=== PATIENT | female | born 1940 | race Native Hawaiian/Other Pacific Islander ===

== ENCOUNTER 2016-09-05 10:40 | Outpatient (CLI) | payer OTHER ==
[~2016-09-05] VITALS: Ht 157.5 cm; Wt 40.8 kg
[2016-09-05 10:55] VITALS: BP 117/50; TEMP 98.3
== END 2016-09-05 20:28 | disposition home or self-care (01) ==
LOC: INF 10:40
DX: M81.0 Age-related osteoporosis without current pathological fracture (principal)
CPT/HCPCS: 36415; 82310; 96372; J0897

== ENCOUNTER 2017-03-06 12:51 | Outpatient (CLI) | payer OTHER ==
[~2017-03-06] VITALS: Ht 157.5 cm; Wt 40.8 kg
[2017-03-06 14:00] VITALS: BP 126/50; TEMP 98
== END 2017-03-06 14:00 | disposition home or self-care (01) ==
LOC: INF 12:51
DX: M81.0 Age-related osteoporosis without current pathological fracture (principal)
CPT/HCPCS: 36415; 82310; 96372; J0897

== ENCOUNTER 2017-06-28 13:00 | Outpatient (CLI) | payer OTHER | END 2017-06-28 14:00 | disposition home or self-care (01) | LOC: MAMMO 13:00 | DX: Z12.31 Encounter for screening mammogram for malignant neoplasm of breast (principal) ==

== ENCOUNTER 2017-09-21 12:34 | Outpatient (CLI) | payer OTHER ==
[~2017-09-21] VITALS: Ht 157.5 cm; Wt 40.8 kg
== END 2017-09-21 13:24 | disposition home or self-care (01) ==
LOC: INF 12:34
DX: M81.0 Age-related osteoporosis without current pathological fracture (principal)
CPT/HCPCS: 82310; 96372; J0897

== ENCOUNTER 2018-03-25 09:30 | Outpatient (CLI) | payer OTHER ==
[~2018-03-25] VITALS: Ht 157.5 cm; Wt 40.8 kg
[2018-03-25 09:40] VITALS: BP 149/62; TEMP 97.8
== END 2018-03-25 20:39 | disposition home or self-care (01) ==
LOC: INF 09:30
DX: M81.0 Age-related osteoporosis without current pathological fracture (principal)
CPT/HCPCS: 36415; 82310; 96372; J0897

== ENCOUNTER 2018-08-27 12:09 | Outpatient (CLI) | payer OTHER | END 2018-08-27 20:45 | disposition home or self-care (01) | LOC: MAMMO 12:09 | DX: Z12.31 Encounter for screening mammogram for malignant neoplasm of breast (principal) ==

== ENCOUNTER 2018-09-30 12:43 | Outpatient (CLI) | payer OTHER ==
[~2018-09-30] VITALS: Ht 157.5 cm; Wt 40.8 kg
[2018-09-30 13:00] VITALS: BP 124/41; TEMP 97.9
== END 2018-09-30 13:55 | disposition home or self-care (01) ==
LOC: INF 12:43
DX: M81.0 Age-related osteoporosis without current pathological fracture (principal)
CPT/HCPCS: 36415; 82310; 96372; J0897

== ENCOUNTER 2018-10-06 21:23 | Emergency (ER) | payer OTHER ==
[~2018-10-06] VITALS: Ht 157.5 cm; Wt 40.8 kg
[2018-10-06 23:10] VITALS: BP 131/49; TEMP 97.9
== END 2018-10-06 23:13 | disposition home or self-care (01) ==
LOC: ED 21:23
PROC: 0HQ1XZZ Repair Face Skin, External Approach (ICD-10-PCS; principal; 2018-10-06)
DX: S01.81XA Laceration without foreign body of other part of head, initial encounter (principal); S61.412A Laceration without foreign body of left hand, initial encounter; W01.198A Fall on same level from slipping, tripping and stumbling with subsequent striking against other object, initial encounter; Y92.89 Other specified places as the place of occurrence of the external cause
CPT/HCPCS: 90471; 90715; 99282

== ENCOUNTER 2019-04-07 12:25 | Outpatient (CLI) | payer OTHER ==
[~2019-04-07] VITALS: Ht 157.5 cm; Wt 40.8 kg
[2019-04-07 12:44] VITALS: BP 129/45; TEMP 97.8
[2019-04-07 13:18] VITALS: BP 124/39; TEMP 97.8
== END 2019-04-07 13:18 | disposition home or self-care (01) ==
LOC: INF 12:25
DX: M81.0 Age-related osteoporosis without current pathological fracture (principal)
CPT/HCPCS: 36415; 82310; 96372; J0897

== ENCOUNTER 2019-09-11 12:59 | Outpatient (CLI) | payer OTHER | END 2019-09-11 19:48 | disposition home or self-care (01) | LOC: MAMMO 12:59 | DX: Z12.31 Encounter for screening mammogram for malignant neoplasm of breast (principal) ==

== ENCOUNTER 2019-12-31 12:40 | Outpatient (CLI) | payer OTHER ==
[~2019-12-31] VITALS: Ht 157.5 cm; Wt 40.8 kg
[2019-12-31 12:50] VITALS: BP 130/42; TEMP 98.7
== END 2019-12-31 21:53 | disposition home or self-care (01) ==
LOC: INF 12:40
DX: M81.0 Age-related osteoporosis without current pathological fracture (principal)
CPT/HCPCS: 36415; 82310; 96372; J0897

== ENCOUNTER 2020-07-15 10:14 | Outpatient (CLI) | payer OTHER ==
[~2020-07-15] VITALS: Ht 157.5 cm; Wt 43.1 kg
[2020-07-15 10:30] VITALS: BP 129/50; TEMP 98.4
== END 2020-07-15 11:27 | disposition home or self-care (01) ==
LOC: INF 10:14
PROVIDERS: ATTEND Internal Medicine Endocrinology, Diabetes & Metabolism
DX: M81.0 Age-related osteoporosis without current pathological fracture (principal)
CPT/HCPCS: 36415; 82310; 96372; J0897

== ENCOUNTER 2021-01-24 12:25 | Outpatient (CLI) | payer OTHER ==
[~2021-01-24] VITALS: Ht 157.5 cm; Wt 42.2 kg
== END 2021-01-24 14:30 | disposition home or self-care (01) ==
LOC: INF 12:25
PROVIDERS: ATTEND Internal Medicine Endocrinology, Diabetes & Metabolism
DX: M81.0 Age-related osteoporosis without current pathological fracture (principal)
CPT/HCPCS: 36415; 82310; 96372; J0897

== ENCOUNTER 2021-02-25 10:59 | Outpatient (CLI) | payer OTHER | END 2021-02-25 22:37 | disposition home or self-care (01) | LOC: MAMMO 10:59 | PROVIDERS: ATTEND Internal Medicine | DX: Z12.31 Encounter for screening mammogram for malignant neoplasm of breast (principal) ==

== ENCOUNTER 2021-07-25 09:35 | Outpatient (CLI) | payer OTHER ==
[~2021-07-25] VITALS: Ht 157.5 cm; Wt 40.8 kg
== END 2021-07-25 18:53 | disposition home or self-care (01) ==
LOC: INF 09:35
PROVIDERS: ATTEND Internal Medicine
DX: M81.0 Age-related osteoporosis without current pathological fracture (principal)
CPT/HCPCS: 36415; 82310; 96372; J0897

== ENCOUNTER 2022-02-28 12:33 | Outpatient (CLI) | payer OTHER | END 2022-02-28 19:06 | disposition home or self-care (01) | LOC: MAMMO 12:33 | PROVIDERS: ATTEND Internal Medicine | DX: Z12.31 Encounter for screening mammogram for malignant neoplasm of breast (principal) ==

== ENCOUNTER 2022-03-01 12:32 | Outpatient (CLI) | payer OTHER ==
[~2022-03-01] VITALS: Ht 157.5 cm; Wt 39.9 kg
[2022-03-01 12:47] VITALS: BP 143/61; TEMP 98.3
== END 2022-03-01 19:00 | disposition home or self-care (01) ==
LOC: INF 12:32
PROVIDERS: ATTEND Internal Medicine
DX: M81.0 Age-related osteoporosis without current pathological fracture (principal)
CPT/HCPCS: 36415; 82310; 96372; J0897

== ENCOUNTER 2022-06-29 09:39 | Outpatient (CLI) | payer OTHER | END 2022-06-29 19:02 | disposition home or self-care (01) | LOC: RAD 09:39 | PROVIDERS: ATTEND Physician Assistant | DX: M25.531 Pain in right wrist (principal) ==

== ENCOUNTER 2022-09-28 12:37 | Outpatient (CLI) | payer OTHER ==
[~2022-09-28] VITALS: Ht 162.6 cm; Wt 68.0 kg
[2022-09-28 12:59] VITALS: BP 123/54; TEMP 98.2
[2022-09-28 13:25] VITALS: BP 107/59; TEMP 98.4
== END 2022-09-28 19:20 | disposition home or self-care (01) ==
LOC: INF 12:37
PROVIDERS: ATTEND Internal Medicine
DX: M81.0 Age-related osteoporosis without current pathological fracture (principal)
CPT/HCPCS: 36415; 82310; 96372; J0897

== ENCOUNTER 2022-11-09 14:27 | Emergency (ER) | payer OTHER ==
[~2022-11-09] VITALS: Ht 162.6 cm; Wt 39.0 kg
[2022-11-09 14:30] VITALS: BP 141/59; TEMP 98.7
[2022-11-09 15:13] LABS: PLATELET COUNT 291 K/uL (152-353)
[2022-11-09 15:23] LABS: POTASSIUM 4.3 mmol/L (3.6-5.2)
[2022-11-09 15:45] LABS: PARTIAL THROMBOPLASTIN TIME 29.2 SECONDS (24.5-33.6)
== END 2022-11-09 18:10 | disposition home or self-care (01) ==
LOC: ED 14:27
PROVIDERS: Family Medicine
DX: R09.1 Pleurisy (principal); J02.9 Acute pharyngitis, unspecified; J32.9 Chronic sinusitis, unspecified; E87.1 Hypo-osmolality and hyponatremia; Z20.822 Contact with and (suspected) exposure to COVID-19
CPT/HCPCS: 80053; 81002; 82550; 84484; 85027; 85610; 85730; 87635; 93005; 94664; 96361; 96365; 96375; 99284; J0696; J1885; J2920; U0003

== ENCOUNTER 2023-03-19 12:35 | Outpatient (CLI) | payer OTHER | END 2023-03-19 20:24 | disposition home or self-care (01) | LOC: MAMMO 12:35 | PROVIDERS: ATTEND Internal Medicine | DX: Z12.31 Encounter for screening mammogram for malignant neoplasm of breast (principal) ==

== ENCOUNTER 2023-04-03 13:24 | Outpatient (CLI) | payer OTHER ==
[~2023-04-03] VITALS: Ht 165.1 cm; Wt 68.0 kg
[2023-04-03 13:40] VITALS: BP 131/43; TEMP 97.6
== END 2023-04-03 22:07 | disposition home or self-care (01) ==
LOC: INF 13:24
PROVIDERS: ATTEND Internal Medicine Endocrinology, Diabetes & Metabolism
DX: M81.0 Age-related osteoporosis without current pathological fracture (principal)
CPT/HCPCS: 36415; 82310; 96372; J0897